=== PATIENT | female | born 1985 | race Caucasian/White ===

== ENCOUNTER 2019-10-08 19:00 | Inpatient (IN) | payer BC, OTHER ==
[2019-10-08] MEDS ORDERED: AMPICILLIN SODIUM 2 GM VIAL IVPB ONE (21:00)
[2019-10-08] MEDS ORDERED: AMPICILLIN SODIUM 2 GM VIAL ONE (21:04)
[2019-10-08] MEDS ORDERED: DEXTROSE 5%-LACTATED RINGERS 1,000 ML IV SCH (21:15)
[2019-10-08] MEDS ORDERED: BUTORPHANOL TARTRATE 1 MG/ML VIAL IVPUSH PRN (21:20)
--- NOTE | 2019-10-08 21:20 | HP ---
Past Medical History - Admission Chief Complaint: Labor pain History of Present Illness: 33 yo , LMP 01/03/19, EDC 10/10/19, admitted in active labor. Upon admission she was 7cm dilated with intact membrane. History Source: Patient Limitations to Obtaining History: No Limitations - Past Medical History ...: 2 ...Para: 0 ...EDC by Dates: 10/10/19 ...EDC by Sono: 10/17/19 - Past Surgical History Past Surgical History: Yes: None Hx Myomectomy: No Hx Transabdominal Cerclage: No - Alcohol/Substance Use Hx Alcohol Use: No - Social History Usual Living Arrangement: Yes: With Significant Other History of Recent Travel: No Home Medications - Allergies Allergies/Adverse Reactions: Allergies Allergy/AdvReac Type Severity Reaction Status Date / Time No Known Allergies Allergy Verified 10/02/19 17:48 - Home Medications Home Medications: Ambulatory Orders Pnv No.95/Ferrous Fum/Folic AC [ Formula] 1 each PO DAILY 09/20/19 Review of Systems - Review of Systems Constitutional: reports: No Symptoms Eyes: reports: No Symptoms HENT: reports: No Symptoms Neck: reports: No Symptoms Cardiovascular: reports: No Symptoms Respiratory: reports: No Symptoms Gastrointestinal: reports: No Symptoms Genitourinary: reports: Pain Breasts: reports: No Symptoms Reported Musculoskeletal: reports: No Symptoms Integumentary: reports: No Symptoms Neurological: reports: No Symptoms Psychiatric: reports: No Symptoms Pain Intensity: 6 Physical Exam - Maternity Constitutional: Yes: Calm Eyes: Yes: Conjunctiva Clear HENT: Yes: Atraumatic Neck: Yes: Supple Cardiovascular: Yes: Regular Rate and Rhythm Lungs: Clear to auscultation - Abdominal Exam/OB Number of Fetuses: Single Presentation: Vertex Intensity: Mild/Mod - Vaginal Exam/OB Dilatation (cm): 7 Effacement (%): 90 Amniotic Membrane Status: Intact Presentation: Vertex/Position Station: -1 - Physical Exam ...Motor Strength: WNL Psychiatric: Yes: Alert, Oriented Problem List - Problems (1) 39 weeks gestation of Problems reviewed: Yes Code(s): Z3A.39 - 39 WEEKS GESTATION OF Assessment/Plan 39 weeks gestation Active labor Admit to L&D Analgesia as needed Anticipate
[2019-10-08] MEDS ORDERED: PROMETHAZINE HCL 25 MG/1 ML VIAL IVPB PRN (21:21)
[2019-10-08 21:55] LABS: BASO % 1.1 % (0-2.0); EOS % 0.2 % (0-4.5); HEMATOCRIT 37.5 % (32.4-45.2); HEMOGLOBIN 12.6 GM/dL (10.7-15.3); LYMPH % 22.1 % (8-40); MCH 31.6 pg (25.7-33.7); MCHC 33.6 g/dl (32.0-36.0); MEAN PLT VOLUME 9.4 fl (7.5-11.1); NEUT % 71.6 % (42.8-82.8); PLATELET COUNT 311 K/MM3 (134-434); RBC 3.99 M/mm3 (3.60-5.2); RDW 13.9 % (11.6-15.6); WHITE BLOOD COUNT 18.6 K/mm3 (4.0-10.0)
[2019-10-08 22:06] VITALS: BMI 29.7
[2019-10-08] MEDS ORDERED: LIDOCAINE HCL 1% PRESERVATIVE FREE - 30ML VIAL ONE (22:07)
[2019-10-08] MEDS ORDERED: OXYTOCIN 20 UNITS in 0.9% NS 20 UNIT/1,000 ML INFUS.BAG IV ONE ×2 (22:07→23:49)
[2019-10-08 22:11] LABS: INR 0.83 (0.83-1.09); PROTHROMBIN TIME (PATIENT) 9.8 SEC (9.7-13.0)
[2019-10-08 22:14] LABS: ACTIVATED PTT 25.5 SECONDS (25.2-36.5)
[2019-10-08 22:32] LABS: BLOOD UREA NITROGEN 16.7 mg/dL (7-18); CALCIUM 9.3 mg/dL (8.5-10.1); CREATININE 0.7 mg/dL (0.55-1.3); POTASSIUM 4.8 mmol/L (3.5-5.1)
[2019-10-08] MEDS: IBUPROFEN 600 MG TABLET (FP) PO PRN (22:45)
[2019-10-08] MEDS ORDERED: METHYLERGONOVINE MALEATE 0.2 MG/1 ML AMP IM PRN (22:52)
[2019-10-08] MEDS ORDERED: BENZOCAINE 28 GM HEMORRHOIDAL OINTMENT TP PRN (22:52)
[2019-10-08] MEDS ORDERED: BISACODYL 10 MG SUPP.RECT RC PRN (22:52)
[2019-10-08] MEDS ORDERED: IBUPROFEN 600 MG TABLET (FP) PO ONE (22:54)
--- NOTE | 2019-10-08 22:57 | PN ---
Delivery - Delivery Vaginal Delivery: Spontaneous Type of Anesthesia: Local Episiotomy/Laceration: 2nd degree EBL (cc): 250 Delivery, Single - Feeding Plan Initial Plan: Elected not to breastfeed exclusively throughout hospitalization Remarks - Remarks Remarks: Normal spontaneous vaginal delivery of a live infant girl over second degree laceration. Nose / Oropharynx suctioned @ perineum. Cord clamped and cut. Baby handed to nurse. Placenta expelled spontaneously intact. Laceration repaired with 2.0 chromic and 2.0 biosyn. Mother in stable condition.
[2019-10-08] MEDS ORDERED: OXYTOCIN 20 UNITS in 0.9% NS 20 UNIT/1,000 ML INFUS.BAG IV SCH (23:00)
[2019-10-09] MEDS ORDERED: AMPICILLIN SODIUM 1 GM VIAL IVPB SCH (01:00)
[2019-10-09] MEDS ORDERED: OXYTOCIN 20 UNITS in 0.9% NS 20 UNIT/1,000 ML INFUS.BAG IV ONE (01:41)
[2019-10-09] MEDS: BENZOCAINE 20% 57 GM BOTTLE TP PRN (02:38)
[2019-10-09] MEDS: WITCH HAZEL 50% (TUCKS) 40 PAD/JAR PAD TP PRN (02:39)
[2019-10-09] MEDS: IBUPROFEN 600 MG TABLET (FP) PO PRN ×4 (02:39→19:12)
--- NOTE | 2019-10-09 07:42 | PN ---
Post Progress Note - Subjective Subjective: 33 yo Para 1 status post vaginal delivery seen and evaluated. Doing well. Post Day: 1 Type of Delivery: Vital Signs: Vital Signs Temperature 98.7 F 10/09/19 06:00 Pulse Rate 62 10/09/19 06:00 Respiratory Rate 18 10/09/19 06:00 Blood Pressure 120/67 10/09/19 06:00 O2 Sat by Pulse Oximetry (%) 99 10/08/19 23:45 Breast Exam: Yes: Soft Uterus: Yes: Fundus Firm Abdomen/GI: Yes: Abdomen soft Lochia: Yes: Rubra Lochia, amount: Moderate Extremities: Yes: Calves non-tender Perineum: Yes: Laceration (healing) Activity: Ambulating - Labs Labs: CBC WBC 18.6 K/mm3 (4.0-10.0) H 10/08/19 21:15 RBC 3.99 M/mm3 (3.60-5.2) 10/08/19 21:15 Hgb 12.6 GM/dL (10.7-15.3) 10/08/19 21:15 Hct 37.5 % (32.4-45.2) 10/08/19 21:15 MCV 94.0 fl (80-96) 10/08/19 21:15 MCH 31.6 pg (25.7-33.7) 10/08/19 21:15 MCHC 33.6 g/dl (32.0-36.0) 10/08/19 21:15 RDW 13.9 % (11.6-15.6) 10/08/19 21:15 Plt Count 311 K/MM3 (134-434) 10/08/19 21:15 MPV 9.4 fl (7.5-11.1) 10/08/19 21:15 Absolute Neuts (auto) 13.3 K/mm3 (1.5-8.0) H 10/08/19 21:15 Neutrophils % 71.6 % (42.8-82.8) 10/08/19 21:15 Lymphocytes % 22.1 % (8-40) 10/08/19 21:15 Monocytes % 5.0 % (3.8-10.2) 10/08/19 21:15 Eosinophils % 0.2 % (0-4.5) 10/08/19 21:15 Basophils % 1.1 % (0-2.0) 10/08/19 21:15 Nucleated RBC % 0 % (0-0) 10/08/19 21:15 Problem List - Problems (1) 39 weeks gestation of Problems reviewed: Yes Code(s): Z3A.39 - 39 WEEKS GESTATION OF (2) Status post vaginal delivery Problems reviewed: Yes Code(s): OHA2056 - Assessment/Plan Status post vaginal delivery Stable F/U repeat CBC Continue care
[2019-10-09] MEDS: ACETAMINOPHEN 325 MG TABLET (FP) PO PRN ×3 (08:17→19:13)
[2019-10-09 08:51] LABS: BASO % 0.4 % (0-2.0); EOS % 0.1 % (0-4.5); HEMATOCRIT 33.5 % (32.4-45.2); LYMPH % 16.4 % (8-40); MCH 31.3 pg (25.7-33.7); MCHC 32.9 g/dl (32.0-36.0); MEAN PLT VOLUME 8.5 fl (7.5-11.1); NEUT % 79.1 % (42.8-82.8); PLATELET COUNT 264 K/MM3 (134-434); RBC 3.53 M/mm3 (3.60-5.2); RDW 13.9 % (11.6-15.6); WHITE BLOOD COUNT 18.5 K/mm3 (4.0-10.0)
[2019-10-09] MEDS: PRENATAL VITAMINS W/ FOLIC ACID TABLET (FP) PO SCH (09:15)
[2019-10-09] MEDS: FERROUS SO4 325 MG TABLET (FP) PO SCH ×2 (09:15→22:01)
[2019-10-09] MEDS ORDERED: DIPHTH,PERTUSS(ACELL),TET 0.5 ML DISP.SYRIN IM ONE (10:00)
[2019-10-09 19:56] VITALS: PULSE 78
[2019-10-09] MEDS ORDERED: SENNOSIDES/DOCUSATE COMBO (SENNA PLUS) TABLET (UD) PO PRN (22:00)
[2019-10-10] MEDS: IBUPROFEN 600 MG TABLET (FP) PO PRN (07:57)
[2019-10-10] MEDS: ACETAMINOPHEN 325 MG TABLET (FP) PO PRN (07:57)
[2019-10-10] MEDS: PRENATAL VITAMINS W/ FOLIC ACID TABLET (FP) PO SCH (10:04)
[2019-10-10] MEDS: FERROUS SO4 325 MG TABLET (FP) PO SCH (10:04)
[2019-10-10 10:35] VITALS: BP 129/81; TEMP 97.9
[2019-10-10] MEDS: BENZOCAINE 20% 57 GM BOTTLE TP PRN (14:09)
[2019-10-10] MEDS: WITCH HAZEL 50% (TUCKS) 40 PAD/JAR PAD TP PRN (14:10)
== END 2019-10-10 14:45 | disposition home or self-care (01) | DRG 807 ==
LOC: JDEL 19:00 → JLDR 21:00 → J3W 10-09 01:45
PROVIDERS: ADMIT Obstetrics & Gynecology; ATTEND Obstetrics & Gynecology
PROC: 0KQM0ZZ Repair Perineum Muscle, Open Approach (ICD-10-PCS; principal; 2019-10-08)
PROC: 10E0XZZ Delivery of Products of Conception, External Approach (ICD-10-PCS; 2019-10-08)
DX: O70.1 Second degree perineal laceration during delivery (principal); Z37.0 Single live birth; Z3A.39 39 weeks gestation of pregnancy
CPT/HCPCS: 36415; 59409; 80048; 85025; 85610; 85730; 86593; 86850; 86900; 86901; 90715

== ENCOUNTER 2024-05-12 16:48 | Emergency (ER) | payer BC, OTHER ==
[2024-05-12 16:56] VITALS: BMI 25.0
[2024-05-12 17:44] LABS: BASO % 0.5 % (0-2.0); EOS % 1.1 % (0-4.5); HEMATOCRIT 33.7 % (32.4-45.2); HEMOGLOBIN 11.5 GM/dL (10.7-15.3); LYMPH % 38.7 % (8-40); MCH 31.2 pg (25.7-33.7); MCHC 34.1 g/dl (32.0-36.0); MEAN CELL VOLUME 91.4 fl (80-96); MEAN PLT VOLUME 7.1 fl (7.5-11.1); MONO % 6.7 % (3.8-10.2); PLATELET COUNT 333 10^3/uL (134-434); RBC 3.69 M/mm3 (3.60-5.2); RDW 13.5 % (11.6-15.6); WHITE BLOOD COUNT 8.9 K/mm3 (4.0-10.0)
[2024-05-12 18:31] LABS: BLOOD UREA NITROGEN 15.3 mg/dL (7-18); CALCIUM 8.8 mg/dL (8.5-10.1); CREATININE 0.7 mg/dL (0.55-1.3); POTASSIUM 3.6 mmol/L (3.5-5.1)
[2024-05-12 18:49] LABS: INR 1.01 (0.83-1.09); PROTHROMBIN TIME (PATIENT) 11.6 SEC (9.7-13.0)
[2024-05-12 20:54] VITALS: BP 120/72; PULSE 78; RESP 18; TEMP 98
== END 2024-05-12 20:56 | disposition home or self-care (01) ==
LOC: JER 16:48
DX: O03.9 Complete or unspecified spontaneous abortion without complication (principal)
CPT/HCPCS: 36415; 76830-TC; 80048; 84702; 85025; 85610; 86850; 86900; 86901; 99284-25